=== PATIENT | female | born 1970 | race Caucasian/White ===

== ENCOUNTER → 2024-01-23 12:34 | Outpatient (REF) | payer OTHER, SELFPAY | LOC: HWRAD 12:34 | PROVIDERS: ATTENDING PHYSICIAN Emergency Medicine | DX: N95.1 Menopausal and female climacteric states (principal) | CPT/HCPCS: 77080 ==

== ENCOUNTER → 2024-01-30 10:19 | Outpatient (REF) | payer OTHER, SELFPAY | LOC: RAD 10:19 | PROVIDERS: ATTENDING PHYSICIAN Physician Assistant Medical; FAMILY PHYSICIAN Emergency Medicine | DX: M25.562 Pain in left knee (principal) | CPT/HCPCS: 73564 ==

== ENCOUNTER → 2025-06-10 06:55 | Outpatient (REF) | payer OTHER, SELFPAY | LOC: HWRAD 06:55 | PROVIDERS: ATTENDING PHYSICIAN Emergency Medicine | DX: R74.01 Elevation of levels of liver transaminase levels (principal); R07.81 Pleurodynia | CPT/HCPCS: 71101; 76700 ==

== ENCOUNTER → 2025-06-19 10:33 | Outpatient (REF) | payer OTHER, SELFPAY | LOC: HWRAD 10:33 | PROVIDERS: ATTENDING PHYSICIAN Emergency Medicine | DX: Z87.891 Personal history of nicotine dependence (principal); Z72.0 Tobacco use | CPT/HCPCS: 71271 ==